=== PATIENT | female | born 1980 | race Caucasian/White ===

== ENCOUNTER 2020-06-17 19:30 | Emergency (ER) | payer OTHER, SELFPAY ==
[2020-06-17 19:41] VITALS: BP 132/79; PULSE 97; RESP 16; TEMP 37.8; O2SAT 99
--- NOTE | 2020-06-17 20:05 | ED.FEMALEGU ---
HPI - Female Genitourinary General Chief complaint: Urogenital-Female Stated complaint: uti Time Seen by Provider: 06/17/20 19:54 Source: patient Mode of arrival: ambulatory Limitations: no limitations History of Present Illness HPI Narrative: Patient is a 39 year old patient who presents with complaints of fever, chills, headache and vomiting x 1 day. Patient reports she had symptoms of urinary frequency and urgency yesterday and called pcp, had telemedicine visit and started on macrobid. Patient reports 3 doses of macrobid and presented with fever, chills, headache and vomiting. Patient reports that she was in [place] a week ago. She is also concerned with having Covid. MD elicited complaint: UTI and other Related Data Home Medications Medication Instructions Recorded Confirmed esdgotvwkl-qyacerboywgnn-tnsz tablet 06/17/20 nitrofurantoin monohyd/m-cryst 06/17/20 Allergies Allergy/AdvReac Type Severity Reaction Status Date / Time sulfamethoxazole Allergy Mild Swelling Verified 06/17/20 20:22 of Lip/Tongue/Throat Sulfa (Sulfonamide Allergy Unknown Swelling Verified 06/17/20 20:22 Antibiotics) sulfamethizole Allergy Unknown Swelling Verified 06/17/20 20:22 of Lip/Tongue/Throat trimethoprim Allergy Unknown Swelling Verified 06/17/20 20:22 of Lip/Tongue/Throat Review of Systems Review of Systems: Narrative: CONSTITUTIONAL: Reports fever and chills. EYES: Denies visual changes, redness, or discharge. ENT: Denies rhinorrhea, congestion, sore throat, or otalgia. CARDIOVASCULAR: Denies chest pain, palpitations, or edema. RESPIRATORY: Denies cough or dyspnea. GASTROINTESTINAL: Denies abdominal pain or diarrhea. Reports nausea and vomiting. GENITOURINARY: Denies dysuria or hematuria, reports frequency and urgency. SKIN: Denies rash or itching. MUSCULOSKELETAL: Denies back pain, joint pain, or myalgia. NEUROLOGIC: Denies headache, numbness, dizziness, or weakness. PSYCHIATRIC: Denies anxiety or depression. [facility] Family History Family History Father Hypertension Grandparent Family history of lung cancer Mother Family history of malignant neoplasm of kidney Social History Social History Smoking status: Never smoker Second hand tobacco smoke exposure: No Alcohol intake: never Exam Narrative: Exam Narrative: GENERAL: Well-appearing, well-nourished, and in no acute distress. HEAD: Normocephalic, atraumatic. EYES: EOMI. No redness or drainage. Conjunctiva are normal. ENT: Mucous membranes pink and moist. CHEST: No respiratory distress. Clear to auscultation. HEART: Regular rate and rhythm. No murmur appreciated. Normal peripheral pulses. GI: Soft, nontender without rebound, or guarding. No distention. Bowel sounds normal in all quadrants. MUSCULOSKELETAL: No bony tenderness. EXTREMITIES: Normal range of motion. No edema. SKIN: Warm, dry, no rash. NEURO: No focal deficits. Alert and oriented x3. Gait steady. PSYCH: Normal affect. No signs of depression or anxiety. Course Vital Signs Vital signs: Vital Signs Temperature 37.8 C H 06/17/20 19:41 Pulse Rate 97 06/17/20 19:41 Respiratory Rate 16 06/17/20 19:41 Blood Pressure 132/79 06/17/20 19:41 Pulse Oximetry 99 06/17/20 19:41 Temperature 37.8 C H 06/17/20 19:41 Pulse Rate 97 06/17/20 19:41 Respiratory Rate 16 06/17/20 19:41 Blood Pressure 132/79 06/17/20 19:41 Pulse Oximetry 99 06/17/20 19:41 MDM - Female Genitourinary MDM Narrative Medical decision making narrative: Patient will be started on Keflex at this time for UTI. Testing for Covid competed because of patients symptoms and recent travels. Patient aware of the need to quarantine until return of Covid testing. Discussed plan of care with patient and patient verbally acknowledges plan of care. Forresta
[2020-06-17 20:36] LABS: Add Urine Microscopic? YES; Appearance Urine Clear (Clear); Bacteria Urine Trace /hpf; Bilirubin Urine Negative (Negative); Blood Urine Negative (Negative); Color Urine Amber (Yellow); Glucose Urine UA Negative (Negative); Ketones Urine Negative (Negative); Leukocyte Esterase Ur Negative LEU/UL (Negative); Mucus Urine Rare /lpf; Nitrate Urine Positive (Negative); Protein Urine 1+ mg/dL (Negative); WBC Urine 0-3 /hpf
[2020-06-17] MEDS: SODIUM CHLORIDE 0.9% IV 1,000 ML 999 ML IV CONT (21:06)
[2020-06-17] MEDS: ONDANSETRON INJ 4 MG/2 ML VIAL IV PUSH (21:07)
[2020-06-17] MEDS: CEPHALEXIN 500 MG CAPSULE PO (22:36)
[2020-06-17 22:37] VITALS: BP 114/68; PULSE 75; RESP 18; TEMP 37.7; O2SAT 100
[2020-06-19 12:00] LABS: SARS-CoV-2 RNA PCR Negative
== END 2020-06-17 22:37 | disposition home or self-care (01) ==
LOC: ANHED 21:10
PROVIDERS: Emergency Provider Nurse Practitioner; PCP Internal Medicine
DX: N30.00 Acute cystitis without hematuria (principal); Z20.828 Contact with and (suspected) exposure to other viral communicable diseases
CPT/HCPCS: 81001; 81025; 87635; 96361; 96374; 99284; A9270; C9803; J2405; J7030; U0003

== ENCOUNTER 2020-09-13 08:18 | Outpatient (CLI) | payer OTHER, SELFPAY ==
--- NOTE | ~2020-09-13 | XR_ITS ---
XR UGI water soluble wo kub DATE: 09/13/2020 09:14 INDICATION: Nausea and fiery epigastric pain for 3 weeks TECHNIQUE: Single contrast examination with water-soluble contrast material COMPARISON: None FINDINGS: There is normal deglutition and esophageal peristalsis. No stricture, mucosal fold thickeni ng, ulceration or intraluminal mass lesion of the esophagus, stomach or duodenum is detected. The pro ximal and mid small bowel mucosal pattern appears normal. IMPRESSION: No significant abnormality Reviewed, dictated and finalized at [facility]. Reviewed, dictated and finalized at location [facility]. IMPRESSION: No significant abnormality
== END 2020-09-13 08:19 | disposition home or self-care (01) ==
PROVIDERS: PCP Internal Medicine; Visit Provider Nurse Practitioner
DX: R11.0 Nausea (principal)
CPT/HCPCS: 74240

== ENCOUNTER 2021-02-08 08:58 | Outpatient (CLI) | payer OTHER, SELFPAY ==
--- NOTE | ~2021-02-08 | US_ITS ---
EXAMINATION: US pelvic complete w TV DATE: 02/08/2021 09:45 INDICATION: Bilateral ovarian cyst. Comparison:No prior studies for comparison. TECHNIQUE: Multiple transabdominal and endovaginal sonographic images of the pelvis performed. FINDINGS: The uterus measures 9 x 4.3 x 4 cm. There is fluid in the endometrium, likely physiologic. The endometrial complex measures 9 mm. The right ovary measures 2.6 x 2.1 x 2.6 cm and the left ovary measures 2.2 x 1.7 x 2.0 cm. There ar e small follicles in each ovary. There is a 2 cm left ovarian cyst. Normal doppler signal in both ova kennedy. There is no free fluid in the pelvis. There are no abnormal masses seen on either side. IMPRESSION: 1. 2 cm left ovarian cyst. Reviewed, dictated and finalized at location [facility]. IMPRESSION: 1. 2 cm left ovarian cyst.
== END 2021-02-08 08:59 | disposition home or self-care (01) ==
PROVIDERS: PCP Internal Medicine; Visit Provider Student in an Organized Health Care Education/Training Program
DX: N83.202 Unspecified ovarian cyst, left side (principal)
CPT/HCPCS: 76830; 76856

== ENCOUNTER 2021-02-20 15:28 | Emergency (ER) | payer OTHER, SELFPAY ==
[2021-02-20] VITALS (10 sets, daily range): BP systolic 118–135; BP diastolic 68–79; PULSE 83–96; RESP 14–38; TEMP 36.4–36.6; O2SAT 94–99
--- NOTE | ~2021-02-20 | XR_ITS ---
EXAMINATION: XR chest 2V DATE: 02/20/2021 16:04 INDICATION: Shortness of breath. Chest pain with inhalation. TECHNIQUE: PA and lateral views of the chest were obtained. COMPARISON: Chest CT dated 05/25/2014 FINDINGS: The lungs are clear with no focal airspace opacities, pulmonary edema, pleural effusion or pneumothor ax. The cardiomediastinal silhouette is normal. Mild pectus excavatum. Mild thoracic spondylosis. IMPRESSION: 1. No acute cardiopulmonary disease. Reviewed, dictated and finalized at location [facility].
--- NOTE | ~2021-02-20 | CT_ITS ---
EXAMINATION: CTA chest PE protocol DATE: 02/20/2021 18:01 INDICATION: Chest pain and shortness of breath TECHNIQUE: Computed tomography angiography (CTA) of the chest was performed with 100 mL Omnipaque-350 intravenous contrast timed to evaluate the pulmonary arteries. Coronal maximum intensity projection 3D-reconstructions were created by the technologist. The dose-length product (DLP) was 148.88 mGy-cm. Automated exposure control and iterative reconstruction technique were employed. COMPARISON: 05/25/2014 FINDINGS: Respiratory motion artifact mildly limits the examination. The pulmonary arteries are well- opacified. No pulmonary embolism is identified. There are widespread groundglass opacities throughout the lungs, worst in the mid and upper lung zones and patchy in the lung bases. There is no pleural e ffusion or pneumothorax. The heart size is normal. There is mild right hilar lymphadenopathy. There i s a 10 mm nodule of the right thyroid lobe. IMPRESSION: 1. Widespread groundglass opacities throughout the lungs with a mid and upper lung zone predominance. Differential includes atypical pneumonia and hypersensitivity pneumonitis. 2. No pulmonary embolus identified. Reviewed, dictated and finalized at location A. IMPRESSION: 1. Widespread groundglass opacities throughout the lungs with a mid and upper l verena zone predominance. Differential includes atypical pneumonia and hypersensit ivity pneumonitis. 2. No pulmonary embolus identified.
--- NOTE | 2021-02-20 15:48 | ECG_ITS ---
Measurements Intervals [place] Rate: 97 P: 68 [place]: 136 QRS: 76 QRSD: 83 T: 7 QT: 358 QTc: 455 Interpretive Statements SINUS RHYTHM LEFT ATRIAL ENLARGEMENT MINIMAL Q WAVES- INFERIOR LEADS BORDERLINE ST-T WAVE ABNORMALITY- INFERIOR LEADS BASELINE ARTIFACT- II, III, AVR, AVL, AVF, V4 BORDERLINE ECG Electronically Signed On 02-20-2021 16:46:06 CDT by Lawrence Paz D.O.
[2021-02-20 15:56] LABS: Basophils Percent Auto 0.4 % (0.2-1.2); Eosinophils Absolute Auto 0.1 K/mm3 (0-0.3); Eosinophils Percent Auto 0.7 % (0-4.4); Hemoglobin 11.4 g/dL (12.0-15.0); Immature Granulocyte Absolute 0.03 K/mm3 (0.00-0.031); Immature Granulocyte Percent A 0.3 % (0-0.5); Mean Corpuscular HGB Conc 32.6 g/dl (32-36); Mean Corpuscular Hemoglobin 30.2 pg (26-34); Mean Corpuscular Volume 92.8 fl (80-100); Mean Platelet Volume 9.5 fl (7.4-10.4); Monocytes Absolute Auto 0.7 K/mm3 (0.1-0.6); Monocytes Percent Auto 5.9 % (2.6-8.5); Neutrophils Absolute Auto 9.4 K/mm3 (1.3-6.7); Neutrophils Percent Auto 83.7 % (45.5-73.1); Platelet Count Result 398 k/mm3 (150-375); Red Blood Count 3.77 M/mm3 (4.2-5.4); Red Cell Distribution Width 12.9 % (11.5-14.5); White Blood Count 11.2 K/mm3 (4.5-10.0)
[2021-02-20 16:08] LABS: Anion Gap 9 mmol/L (8-16); Blood Urea Nitrogen 12 mg/dL (7-17); Calcium 9.2 mg/dL (8.4-10.2); Carbon Dioxide 25 mmol/L (22-30); Chloride 106 mmol/L (98-107); Estimated CRCL calculation 121 ml/min; Estimated Glomerular Filt Rate > 60; Glucose 113 mg/dL (65-105); Potassium 3.8 mmol/L (3.4-5.0); Sodium 140 mmol/L (137-145)
--- NOTE | 2021-02-20 16:50 | ED.SOB ---
HPI - SOB/Dyspnea General Chief Complaint: Shortness of Breath/Dyspnea Stated Complaint: pain w/ inspiration Time Seen by Provider: 02/20/21 16:07 Source: patient Mode of arrival: ambulatory Limitations: no limitations History of Present Illness HPI Narrative: Patient is a 40-year-old female who presents to the emergency department with complaints of dry cough, chest pain and shortness of breath. She also reports mild nausea that has been continuous for approximately the past 2 to 3 weeks. Patient reports shortness of breath started approximately 3 days ago. Patient reports being seen and treated MoBap and diagnosed with pleurisy. She reports negative rapid Covid in ED. Patient reports having Moderna vaccine x 2 and is over 4 weeks out from last does. Per patient she has recently been diagnosed with with mild Crohn's and was seen on abdominal CT with and inflamed ileum . Patient reports recent diagnosis with UTI and over the past month has had chills and body aches. She reports being on antibiotics for UTI. She also reports recent rheumatology work up that was negative for Lupus and RA. 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 She appears uncomfortable and continues to cough with deep breathing during assessment. She has no history or asthma or other respiratory conditions. MD elicited complaint: shortness of breath, cough and chest pain Related Data Home Medications Medication Instructions Recorded Confirmed ocntzenlkm-uzkvmomgthgja-ekiq tablet 06/17/20 09/20/20 cholecalciferol (vitamin D3) 50 50 mcg PO DAILY 09/14/20 09/20/20 mcg (2,000 unit) capsule ascorbic acid (vitamin C) 250 mg 250 mg PO DAILY 09/20/20 09/20/20 tablet zinc 50 mg tablet 50 mg PO DAILY 09/20/20 09/20/20 Allergies Allergy/AdvReac Type Severity Reaction Status Date / Time sulfamethoxazole Allergy Mild Swelling Verified 09/20/20 08:03 of Lip/Tongue/Throat Sulfa (Sulfonamide Allergy Unknown Swelling Verified 09/20/20 08:03 Antibiotics) sulfamethizole Allergy Unknown Swelling Verified 09/20/20 08:03 of Lip/Tongue/Throat trimethoprim Allergy Unknown Swelling Verified 09/20/20 08:03 of Lip/Tongue/Throat prochlorperazine AdvReac Anxiety Verified 02/20/21 15:50 [From Compazine] Review of Systems Review of Systems: Narrative: CONSTITUTIONAL: Denies fever, chills, or sweats. EYES: Denies visual changes, redness, or discharge. ENT: Denies rhinorrhea, congestion, sore throat, or otalgia. CARDIOVASCULAR: Reports chest pain, denies palpitations or edema. RESPIRATORY: Reports cough and dyspnea. GASTROINTESTINAL: Denies abdominal pain, reports mild nausea GENITOURINARY: Denies dysuria or hematuria. SKIN: Denies rash or itching. MUSCULOSKELETAL: Denies back pain, joint pain, or myalgia. NEUROLOGIC: Denies headache, numbness, dizziness, or weakness. PSYCHIATRIC: Denies anxiety or depression. [facility] Surgical History Surgical History Hx of tonsillectomy Family History Family History Father Hypertension Grandparent Family history of lung cancer Mother Family history of malignant neoplasm of kidney Social History Social History (Updated 02/20/21 @ 16:58 by JAZMIN Simpson) Smoking status: Never smoker Second hand tobacco smoke exposure: No Alcohol intake: never Substance use: never Comments At the time of signature, I have reviewed and agree with nursing past medical, surgical, social, and family history unless otherwise noted. Please see nursing chart for further information. There is no relevant family history pertinent to the presenting complaint. Exam Narrative: Exam Narrative: GENERAL: Well-appearing, well-nourished, and in no acute distress. HEAD: Normocephalic, atraumatic. EYES: EOMI. No redness or drainage. Conjunctiva are normal. ENT: Mucous membranes pink and moist.
[2021-02-20 17:39] LABS: Add Urine Microscopic? YES; Appearance Urine Clear (Clear); Bilirubin Urine Negative (Negative); Blood Urine 2+ (Negative); Color Urine Yellow (Yellow); Glucose Urine UA Negative (Negative); Ketones Urine 1+ mg/dL (Negative); Leukocyte Esterase Ur Negative LEU/UL (Negative); Mucus Urine Moderate /lpf; Nitrate Urine Negative (Negative); Protein Urine 1+ mg/dL (Negative); Specific Grav Ur 1.023 (1.001-1.035); Urobilinogen Urine Negative mg/dL (<2.0); WBC Urine 0-3 /hpf
--- NOTE | 2021-02-20 19:45 | PC.NURSE ---
Pt presents to ED with complaints of sob that onset on Friday. Pt seen yesterday for same with negative ct results. Pt complains of pain with deep inhalation. Lung sounds are clear and diminished bilaterally. Breathing noted to be even and unlabored at this time. O2 saturation 95% on room air. Pt is alert and oriented x4 and in no obvious distress at this time. All questions and concerns addressed. Pt advised to press call button for assistance.
--- NOTE | 2021-02-20 21:05 | PC.NURSE ---
Spouse presented to bedside. Pt requesting prescriptions for meds; EDNP notified. Pt remains alert and oriented and vitals are stable. Updated on poc and all questions and concerns addressed.
[2021-02-21 17:07] LABS: SARS-CoV-2 RNA PCR Negative
== END 2021-02-20 21:45 | disposition home or self-care (01) ==
PROVIDERS: Emergency Medicine; Emergency Provider Nurse Practitioner; PCP Internal Medicine
DX: Z20.822 Contact with and (suspected) exposure to COVID-19 (principal); J18.9 Pneumonia, unspecified organism
CPT/HCPCS: 36415; 71046; 71275; 80048; 81001; 81025; 85025; 93005; 99284; C9803; Q9967; U0003; U0005

== ENCOUNTER 2021-10-13 10:05 | Emergency (ER) | payer OTHER, SELFPAY ==
[2021-10-13 10:18] VITALS: BP 107/76; PULSE 76; RESP 18; TEMP 36.7; O2SAT 100
--- NOTE | 2021-10-13 10:54 | ED.URI ---
HPI - URI/Sore Throat General Chief Complaint: Upper Respiratory Infection Stated Complaint: chills,bodyache,headache Source: patient and RN notes reviewed Limitations: no limitations History of Present Illness HPI Narrative: The vaccinated patient, a non-smoker/none, presents with chills and nausea. Patient states she has a history of Crohn disease on monoclonal antibodies and has had influenza and Covid vaccines. She is notes a shorter 2-day history of chills, myalgias with definite headache associated with nonbilious emesis x2-3 times yesterday only. No fever, weight loss, significant cough, sore throat; no loss of taste/smell, CP, wheezing, S OB. Azebz-pc-lzxj testing for influenza is definitely positive. Related Data Home Medications Medication Instructions Recorded Confirmed cholecalciferol (vitamin D3) 50 50 mcg PO DAILY 09/14/20 10/13/21 mcg (2,000 unit) capsule nortriptyline 10 mg capsule 10 mg PO BID 04/23/21 10/13/21 cholecalciferol (vitamin D3) 1,250 1,250 mcg PO WEEKLY 07/27/21 10/13/21 mcg (50,000 unit) capsule ferrous sulfate 325 mg (65 mg 325 mg PO DAILY 07/27/21 10/13/21 iron) tablet vedolizumab [Entyvio] IV 10/13/21 10/13/21 Allergies Allergy/AdvReac Type Severity Reaction Status Date / Time nitrofurantoin Allergy Severe Lung Verified 10/13/21 10:26 [From Macrobid] injury sulfamethoxazole Allergy Mild Swelling Verified 10/13/21 10:26 of Lip/Tongue/Throat Sulfa (Sulfonamide Allergy Unknown Swelling Verified 10/13/21 10:26 Antibiotics) sulfamethizole Allergy Unknown Swelling Verified 10/13/21 10:26 of Lip/Tongue/Throat trimethoprim Allergy Unknown Swelling Verified 10/13/21 10:26 of Lip/Tongue/Throat prochlorperazine AdvReac Anxiety Verified 10/13/21 10:26 [From Compazine] Review of Systems Review of Systems: General/Constitutional: No weight loss, POSSIBLE fever Eyes: N0: Redness,discharge Ears/Nose/Throat: No: Epistaxis,ear discharge Respiratory: Denies: Hemoptysis Gastrointestinal: No Vomiting, Bleeding-rectal Skin: No Lumps, eruption Neurologic: No Focal Weakness,Sz Hematologic: Denies: Petechiae/Purpura Psychiatric: No: Suicida ideationl All Other Systems: Reviewed and Negative PMFSH Surgical History Surgical History Hx of tonsillectomy Family History Family History Father Hypertension Grandparent Family history of lung cancer Mother Family history of malignant neoplasm of kidney Social History Social History (Updated 07/27/21 @ 09:11 by Ana Cristina Kim CNA) Smoking status: Never smoker Second hand tobacco smoke exposure: No Alcohol intake: never Substance use: never Comments At time of signature, agree with nursing past medical, surgical, social and family history. There is no relevant family history pertinent to the presenting complaint Exam Narrative: General Appearance: Well appearing, Well nourished EYE: PERRLA, Conjunctiva clear Ears: Auditory canal normal, TM normal Nose: no rhinorrhea, Mucousal erythema Mouth/Throat: MM moist, Uvula midline, Pharyngeal erythema , Supple, No adenopathy Respiratory: No respiratory distress, Breath sounds equal, Clear to auscultation Cardiovascular: RRR, No JVD Musculoskeletal: Non tender, Normal strength Skin: Warm, Dry Neurological: A&O x3, CN II-XII intact Psychiatric: Normal mood, Normal affect Course Vital Signs Vital signs: Vital Signs Temperature 98.1 F 10/13/21 10:18 Pulse Rate 76 10/13/21 10:18 Respiratory Rate 18 10/13/21 10:18 Blood Pressure 107/76 10/13/21 10:18 Pulse Oximetry 100 10/13/21 10:18 Temperature 98.1 F 10/13/21 10:18 Pulse Rate 76 10/13/21 10:18 Respiratory Rate 18 10/13/21 10:18 Blood Pressure 107/76 10/13/21 10:18 Pulse Oximetry 100 10/13/21 10:18 MDM - URI/Sore Thr
== END 2021-10-13 11:01 | disposition home or self-care (01) ==
PROVIDERS: Emergency Provider Emergency Medicine; PCP Internal Medicine
DX: J10.1 Influenza due to other identified influenza virus with other respiratory manifestations (principal); K50.90 Crohn's disease, unspecified, without complications; M06.9 Rheumatoid arthritis, unspecified
CPT/HCPCS: 87804; 99213; G0463

== ENCOUNTER 2021-11-09 09:56 | Emergency (ER) | payer OTHER, SELFPAY ==
--- NOTE | 2021-11-09 10:02 | ED.EYEPROB ---
HPI - Eye Problem General Chief complaint: Eye Problems Stated complaint: bilateral eye irritation Time Seen by Provider: 11/09/21 10:02 Source: patient, family and RN notes reviewed Mode of arrival: ambulatory Limitations: no limitations History of Present Illness HPI Narrative: Kristin is a 41-year-old female patient who ambulated into the [facility]. Patient's complaining of right eye irritation for 1 day. Patient also states she has a small white spot to the left. Patient denies any drainage. Patient states she is had irritation for several days but site before the pain. Pain started yesterday afternoon. Patient has used saline drops. Patient use cold compresses which she states increased irritation. Patient is a contact lens wear. She remove those yesterday and has been wearing her glasses. Patient states all of her contacts did come out intact. Patient does take nortriptyline and has noticed dry eyes since starting. Related Data Home Medications Medication Instructions Recorded Confirmed nortriptyline 10 mg capsule 10 mg PO BID 04/23/21 11/09/21 cholecalciferol (vitamin D3) 1,250 1,250 mcg PO WEEKLY 07/27/21 11/09/21 mcg (50,000 unit) capsule ferrous sulfate 325 mg (65 mg 325 mg PO DAILY 07/27/21 11/09/21 iron) tablet vedolizumab [Entyvio] IV DIRECTED 10/13/21 10/13/21 Allergies Allergy/AdvReac Type Severity Reaction Status Date / Time nitrofurantoin Allergy Severe Lung Verified 11/09/21 10:14 [From Macrobid] injury sulfamethoxazole Allergy Mild Swelling Verified 11/09/21 10:14 of Lip/Tongue/Throat Sulfa (Sulfonamide Allergy Unknown Swelling Verified 11/09/21 10:14 Antibiotics) sulfamethizole Allergy Unknown Swelling Verified 11/09/21 10:14 of Lip/Tongue/Throat trimethoprim Allergy Unknown Swelling Verified 11/09/21 10:14 of Lip/Tongue/Throat prochlorperazine AdvReac Anxiety Verified 11/09/21 10:14 [From Compazine] Review of Systems Review of Systems: CONSTITUTIONAL: Denies body aches, fever, chills, or sweats. EYES: Denies visual changes,+ redness, denies discharge. ENT: Denies rhinorrhea, congestion, sore throat, or otalgia. CARDIOVASCULAR: Denies chest pain, palpitations, or edema. RESPIRATORY: Denies cough or dyspnea. GASTROINTESTINAL: Denies abdominal pain, nausea, vomiting, or diarrhea. GENITOURINARY: Denies dysuria or hematuria. SKIN: Denies rash, itching, or wounds. MUSCULOSKELETAL: Denies back pain, joint pain, or myalgia. NEUROLOGIC: Denies headache, numbness, tingling, or weakness. PSYCH: Denies depression or anxiety. [facility] Surgical History Surgical History Hx of tonsillectomy Family History Family History Father Hypertension Grandparent Family history of lung cancer Mother Family history of malignant neoplasm of kidney Social History Social History Smoking status: Never smoker Second hand tobacco smoke exposure: No Alcohol intake: never Substance use: never Comments At time of signature, I have reviewed and agree with nursing past medical, surgical, social and family history unless otherwise noted. Please see nursing chart for further information. There is no relevant family history pertinent to the presenting complaint Exam Narrative: GENERAL: Well-appearing, well-nourished, and in no acute distress. HEAD: Normocephalic, atraumatic. EYES: EOMI. Mild redness right eye without drainage. Conjunctivae normal. ENT: Mucous membranes pink and moist. Nares clear. No rhinorrhea. NECK: Normal AROM. Supple. CHEST: No respiratory distress. MUSCULOSKELETAL: No bony tenderness. EXTREMITIES: Normal range of motion. No edema. SKIN: Warm, dry, no rash. Capillary refill normal. Normal skin turgor. NEURO: No focal deficits. Alert and oriented x3. Gait
[2021-11-09 10:07] VITALS: BP 112/75; PULSE 83; RESP 18; TEMP 37; O2SAT 100
== END 2021-11-09 10:32 | disposition home or self-care (01) ==
PROVIDERS: Emergency Provider Nurse Practitioner Family; PCP Internal Medicine
DX: S05.01XA Injury of conjunctiva and corneal abrasion without foreign body, right eye, initial encounter (principal); X58.XXXA Exposure to other specified factors, initial encounter; K50.90 Crohn's disease, unspecified, without complications
CPT/HCPCS: 99213; A9270; G0463

== ENCOUNTER 2022-02-01 10:58 | Emergency (ER) | payer OTHER, SELFPAY ==
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
[2022-02-01 11:39] VITALS: BP 115/71; PULSE 84; RESP 18; TEMP 36.8; O2SAT 100
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
== END 2022-02-01 12:42 | disposition home or self-care (01) ==
PROVIDERS: Emergency Provider Nurse Practitioner; PCP Internal Medicine
DX: S46.811A Strain of other muscles, fascia and tendons at shoulder and upper arm level, right arm, initial encounter (principal); V49.40XA Driver injured in collision with unspecified motor vehicles in traffic accident, initial encounter; K50.90 Crohn's disease, unspecified, without complications
CPT/HCPCS: 73030; 99213; G0463

== ENCOUNTER 2022-07-22 09:42 | Emergency (ER) | payer OTHER, SELFPAY ==
[2022-07-22 09:52] VITALS: BP 119/79; PULSE 98; RESP 16; TEMP 37.4; O2SAT 100
--- NOTE | 2022-07-22 10:06 | ED.FEMALEGU ---
HPI - Female Genitourinary General Chief complaint: Urogenital-Female Stated complaint: uti symptoms Time Seen by Provider: 07/22/22 09:43 Source: patient Mode of arrival: ambulatory Limitations: no limitations History of Present Illness HPI Narrative: 42-year-old female presents to urgent care with complaints of urinary frequency, urgency, pain and burning since yesterday. Patient reports that she does have a history of urinary tract infections. Patient reports that she is unable to tolerate ciprofloxacin, sulfa drugs and Macrobid. Patient denies abdominal pains, flank pain, fever, bodies, chills, nausea, vomiting, diarrhea, vaginal discharge or concern for STDs. MD elicited complaint: dysuria and UTI Onset (ago): day(s) (1) Vaginal discharge: none Vaginal bleeding: none Urinary symptoms: Dysuria, Urgency and Frequency Exacerbating factors: none Relieving factors: none Treatment prior to arrival: none Patient : No Related Data Home Medications Medication Instructions Recorded Confirmed nortriptyline 10 mg capsule 10 mg PO BID 04/23/21 02/01/22 vedolizumab 300 mg intravenous 300 mg IV DIRECTED 10/13/21 02/01/22 solution (Entyvio) Allergies Allergy/AdvReac Type Severity Reaction Status Date / Time nitrofurantoin Allergy Severe Lung Verified 07/22/22 09:56 [From Macrobid] injury sulfamethoxazole Allergy Mild Swelling Verified 07/22/22 09:56 of Lip/Tongue/Throat Sulfa (Sulfonamide Allergy Unknown Swelling Verified 07/22/22 09:56 Antibiotics) sulfamethizole Allergy Unknown Swelling Verified 07/22/22 09:56 of Lip/Tongue/Throat trimethoprim Allergy Unknown Swelling Verified 07/22/22 09:56 of Lip/Tongue/Throat prochlorperazine AdvReac Anxiety Verified 07/22/22 09:56 [From Compazine] Review of Systems Constitutional: Constitutional: Denies chills and Denies fatigue ENT: Denies vertigo and Denies dizziness Respiratory: Respiratory: Denies chest congestion and Denies cough Gastrointestinal: Gastrointestinal: Denies abdominal pain, Denies nausea and Denies vomiting Genitourinary: Genitourinary: Reports nocturia and Reports dysuria Musculoskeletal: Musculoskeletal: Denies back pain Integumentary/Breasts: Skin/Breast: Denies rash Neurologic: Denies vertigo and Denies dizziness [facility] Past Medical History Medical History Anemia Chronic migraine without aura without status migrainosus, not intractable Crohn disease Surgical History Surgical History Hx of tonsillectomy Family History Family History Father Hypertension Grandparent Family history of lung cancer Mother Family history of malignant neoplasm of kidney Social History Social History Smoking status: Never smoker Second hand tobacco smoke exposure: No Alcohol intake: never Substance use: never Comments At time of signature, I agree with nursing past medical, surgical, social and family history. There is no relevant family history pertinent to the presenting complaint. Exam Const: General: healthy appearing Nutritional Appearance: well nourished Orientation/consciousness: patient oriented x3 Limitations: no limitations Neck: Neck: normal visual inspection Resp: Effort & Inspection: normal respiratory effort and not labored Auscultation: clear to auscultation bilaterally Cardio: Rate: regular rate Rhythm: regular rhythm Heart sounds: no murmurs GI: Inspection: non-distended GI Palp: Yes Soft to palpation, No Tenderness to palpation present (GI), No Guarding due to palpation present (GI) and No Rigid due to palpation Auscultation: normal bowel sounds : General: Yes bladder normal to palpation and Yes no CVA tenderness Back/Spine/Pelvis: Back:
== END 2022-07-22 10:15 | disposition home or self-care (01) ==
PROVIDERS: Emergency Provider Nurse Practitioner Family; PCP Family Medicine
DX: N39.0 Urinary tract infection, site not specified (principal); K50.90 Crohn's disease, unspecified, without complications
CPT/HCPCS: 81003; 87077; 87086; 87088; 87186; 99213; G0463

== ENCOUNTER 2022-09-06 16:15 | Emergency (ER) | payer OTHER, SELFPAY ==
[2022-09-06 16:40] VITALS: BP 132/82; PULSE 81; RESP 99; TEMP 36.7; O2SAT 100
[2022-09-06 17:13] LABS: Basophils Percent Auto 0.4 % (0.2-1.2); Eosinophils Absolute Auto 0.1 K/mm3 (0-0.3); Eosinophils Percent Auto 0.9 % (0-4.4); Hematocrit 32.4 % (37.0-47.0); Hemoglobin 10.9 g/dL (12.0-15.0); Immature Granulocyte Absolute 0.02 K/mm3 (0.00-0.031); Immature Granulocyte Percent A 0.2 % (0-0.5); Lymphocytes Absolute Auto 1.09 K/mm3 (0.9-3.2); Lymphocytes Percent Auto 10.9 % (18.3-44.2); Mean Corpuscular HGB Conc 33.6 g/dl (32-36); Mean Corpuscular Hemoglobin 31.7 pg (26-34); Mean Corpuscular Volume 94.2 fl (80-100); Mean Platelet Volume 9.6 fl (7.4-10.4); Monocytes Absolute Auto 0.5 K/mm3 (0.1-0.6); Monocytes Percent Auto 5.2 % (2.6-8.5); Neutrophils Absolute Auto 8.2 K/mm3 (1.3-6.7); Neutrophils Percent Auto 82.4 % (45.5-73.1); Platelet Count Result 304 k/mm3 (150-375); Red Blood Count 3.44 M/mm3 (4.2-5.4); Red Cell Distribution Width 12.6 % (11.5-14.5)
[2022-09-06 17:23] LABS: Alanine Aminotransferase 18 U/L (6-35); Albumin Level 4.4 g/dL (3.5-5.1); Alkaline Phosphatase 56 U/L (38-126); Anion Gap 8 mmol/L (8-16); Aspartate Amino Transferase 28 U/L (14-36); Bilirubin,Total 1.2 mg/dL (0.2-1.3); Blood Urea Nitrogen 18 mg/dL (7-17); Carbon Dioxide 27 mmol/L (22-30); Chloride 105 mmol/L (98-107); Estimated CRCL calculation 101 ml/min; Estimated Glomerular Filt Rate > 60; Glucose 106 mg/dL (65-110); Lipase 128 U/L (23-300); Potassium 4.2 mmol/L (3.4-5.0); Sodium 140 mmol/L (137-145)
== END 2022-09-06 18:36 | disposition left against medical advice (07) ==
LOC: ANHED 18:40
PROVIDERS: Emergency Provider Emergency Medicine; PCP Family Medicine
DX: R10.30 Lower abdominal pain, unspecified (principal); K50.90 Crohn's disease, unspecified, without complications
CPT/HCPCS: 36415; 80053; 83690; 85025; 99199

== ENCOUNTER 2023-04-17 08:18 | Emergency (ER) | payer OTHER, SELFPAY ==
[2023-04-17 08:36] VITALS: BP 98/70; PULSE 86; RESP 16; TEMP 36.6; O2SAT 100
--- NOTE | 2023-04-17 08:42 | ED.URI ---
HPI - URI/Sore Throat General Chief Complaint: Upper Respiratory Infection Stated Complaint: sore throat,headache,bodyache Time Seen by Provider: 04/17/23 08:29 Source: patient Mode of arrival: ambulatory Limitations: no limitations History of Present Illness HPI Narrative: Patient presents today complaining of 4 day history of sore throat, body aches, headache, postnasal drip. Denies cough, congestion, fever. Denies known sick contacts. Currently rates her pain 4/10 and has taken ibuprofen today without relief. Related Data Home Medications Medication Instructions Recorded Confirmed nortriptyline 10 mg capsule 10 mg PO BID 04/23/21 04/17/23 vedolizumab 300 mg intravenous 300 mg IV DIRECTED 10/13/21 04/17/23 solution (Entyvio) [id number]-tndufkywavfxb-nrezolsh tablet 04/17/23 04/17/23 50 mg-325 mg-40 mg tablet Allergies Allergy/AdvReac Type Severity Reaction Status Date / Time nitrofurantoin Allergy Severe Lung Verified 04/17/23 08:27 [From Macrobid] injury sulfamethoxazole Allergy Mild Swelling Verified 04/17/23 08:27 of Lip/Tongue/Throat Sulfa (Sulfonamide Allergy Unknown Swelling Verified 04/17/23 08:27 Antibiotics) sulfamethizole Allergy Unknown Swelling Verified 04/17/23 08:27 of Lip/Tongue/Throat trimethoprim Allergy Unknown Swelling Verified 04/17/23 08:27 of Lip/Tongue/Throat ciprofloxacin [From Cipro] AdvReac Anxiety Verified 04/17/23 08:28 prochlorperazine AdvReac Anxiety Verified 04/17/23 08:27 [From Compazine] Review of Systems Review of Systems: CONSTITUTIONAL: Denies fever, chills, or sweats.+ body aches EYES: Denies visual changes, redness, or discharge. ENT: Denies rhinorrhea, congestion, or otalgia.+ sore throat, postnasal drip CARDIOVASCULAR: Denies chest pain, palpitations, or edema. RESPIRATORY: Denies cough or dyspnea. GASTROINTESTINAL: Denies abdominal pain, nausea, vomiting, or diarrhea. GENITOURINARY: Denies dysuria or hematuria. SKIN: Denies rash, itching, or wounds. MUSCULOSKELETAL: Denies back pain, joint pain, or myalgia. NEUROLOGIC: Denies numbness, tingling, or weakness.+ headache PSYCH: Denies depression or anxiety. [facility] Past Medical History Medical History Anemia Chronic migraine without aura without status migrainosus, not intractable Crohn disease Surgical History Surgical History Hx of tonsillectomy Family History Family History Father Hypertension Grandparent Family history of lung cancer Mother Family history of malignant neoplasm of kidney Social History Social History Smoking status: Never smoker Second hand tobacco smoke exposure: No Alcohol intake: never Substance use: never Comments At time of signature, I have reviewed and agree with nursing past medical, surgical, social and family history unless otherwise noted. Please see nursing chart for further information. There is no relevant family history pertinent to the presenting complaint Exam Narrative: GENERAL: Well-appearing, well-nourished, and in no acute distress. HEAD: Normocephalic, atraumatic. EYES: EOMI. No redness or drainage. Conjunctivae normal. ENT: Mucous membranes pink and moist. Nares clear. No rhinorrhea. TMs normal bilaterally. Throat mildly erythematous posteriorly without edema or exudate. Uvula midline. NECK: Normal AROM. Supple. No lymphadenopathy. CHEST: No respiratory distress. Clear to auscultation. HEART: Regular rate and rhythm. No murmur appreciated. EXTREMITIES: Normal range of motion. No edema. SKIN: Warm, dry, no rash. Capillary refill normal. Normal skin turgor. NEURO: No focal deficits. Alert and oriented x3. Gait steady. PSYCH: Normal affect. No
== END 2023-04-17 08:49 | disposition home or self-care (01) ==
PROVIDERS: Emergency Provider Nurse Practitioner; PCP Family Medicine
DX: J06.9 Acute upper respiratory infection, unspecified (principal)
CPT/HCPCS: 87081; 87880; 99213; G0463

== ENCOUNTER 2023-05-03 15:54 | Emergency (ER) | payer OTHER, SELFPAY ==
[2023-05-03 16:19] VITALS: BP 112/74; PULSE 81; RESP 16; TEMP 36.6; O2SAT 100
--- NOTE | 2023-05-03 16:49 | ED.ANIMALBIT ---
HPI - Animal Bite General Chief Complaint: Animal Bite Stated Complaint: CAT BITE L LEG Time Seen by Provider: 05/03/23 16:45 Source: patient, RN notes reviewed and old records reviewed Mode of arrival: ambulatory Limitations: no limitations History of Present Illness HPI narrative: 42 year old female who presents to express care with complaints of being scratched and bitten by their barn cat today after cat was scared by their dog. Patient reports that cat scratched the inner aspect of her left lower leg and bit her left lower outer leg with 3 punctures noted, no active bleeding noted. Patient reports that she doesn't think her tetanus is up to date and she is concerned for infection of wounds. MD complaint: animal bite and other (cat scratch) Onset (ago): hour(s) (1500 today) Animal: cat Description of animal: appeared well (their barn cat) Location: other (left leg) Treatments prior to arrival: other (washed with soap and water) Related Data Home Medications Medication Instructions Recorded Confirmed nortriptyline 10 mg capsule 10 mg PO BID 04/23/21 05/03/23 vedolizumab 300 mg intravenous 300 mg IV DIRECTED 10/13/21 05/03/23 solution (Entyvio) [id number]-avovcippiitdd-nzquwfno 1 tablet PO Q4H PRN Headache 04/17/23 05/03/23 50 mg-325 mg-40 mg tablet Allergies Allergy/AdvReac Type Severity Reaction Status Date / Time nitrofurantoin Allergy Severe Lung Verified 05/03/23 16:32 [From Macrobid] injury sulfamethoxazole Allergy Mild Swelling Verified 05/03/23 16:32 of Lip/Tongue/Throat Sulfa (Sulfonamide Allergy Unknown Swelling Verified 05/03/23 16:32 Antibiotics) sulfamethizole Allergy Unknown Swelling Verified 05/03/23 16:32 of Lip/Tongue/Throat trimethoprim Allergy Unknown Swelling Verified 05/03/23 16:32 of Lip/Tongue/Throat ciprofloxacin [From Cipro] AdvReac Anxiety Verified 05/03/23 16:32 prochlorperazine AdvReac Anxiety Verified 05/03/23 16:32 [From Compazine] Review of Systems Review of Systems: CONSTITUTIONAL: Denies fever, chills, or sweats. CARDIOVASCULAR: Denies chest pain, palpitations, or edema. RESPIRATORY: Denies cough or dyspnea. SKIN: Reports scratches to the inner aspect of her left lower leg and puncture ruiz from bite on lateral aspect of left lower leg. MUSCULOSKELETAL: Denies musculoskeletal pain NEUROLOGIC: Denies numbness, or weakness. All systems reviewed & are unremarkable except as noted in HPI and below PMFSH Past Medical History Medical History Anemia Chronic migraine without aura without status migrainosus, not intractable Crohn disease Surgical History Surgical History Hx of tonsillectomy Family History Family History Father Hypertension Grandparent Family history of lung cancer Mother Family history of malignant neoplasm of kidney Social History Social History Smoking status: Never smoker Second hand tobacco smoke exposure: No Alcohol intake: never Substance use: never Comments At time of signature, agree with nursing past medical, surgical, social and family history. There is no relevant family history pertinent to the presenting complaint Exam Narrative: GENERAL: Well-appearing, well-nourished, and in no acute distress. HEAD: Normocephalic, atraumatic. NECK: Supple. no lymphadenopathy CHEST: Clear to auscultation. No respiratory distress.SAO2 100% on room air HEART: Regular rate and rhythm. No murmur heard. Normal peripheral pulses. EXTREMITIES: Normal range of motion. No edema. SKIN: Warm, dry, no rash. Reports puncture [id number] right lower lateral leg near knee and scratch ruiz left inner lower leg near knee also,no active bleeding noted NEURO: No focal deficits. Alert and
[2023-05-03] MEDS: TETANUS,DIPHTHERIA,AC PERTUSSIS ADULT (0.5 ML) BOOSTRIX IM (16:59)
== END 2023-05-03 17:13 | disposition home or self-care (01) ==
PROVIDERS: Emergency Provider Registered Nurse; PCP Family Medicine
DX: S81.852A Open bite, left lower leg, initial encounter (principal); S80.812A Abrasion, left lower leg, initial encounter; W55.01XA Bitten by cat, initial encounter; W55.03XA Scratched by cat, initial encounter; Z23 Encounter for immunization
CPT/HCPCS: 90471; 90715; 99213; G0463

== ENCOUNTER 2023-10-06 12:54 | Emergency (ER) | payer OTHER, SELFPAY ==
--- NOTE | ~2023-10-06 | CT_ITS ---
EXAMINATION: CT abdomen pelvis w con DATE: 10/06/2023 14:08 INDICATION: Abdominal pain. Nausea. TECHNIQUE: Computed tomography (CT) of the abdomen and pelvis was performed with 100 mL Omnipaque 350 intravenous contrast. Automated exposure control and iterative reconstruction technique were employe d. The dose-length product was 292.66 mGy-cm. COMPARISON: CT abdomen and pelvis 09/04/2009 FINDINGS: The visualized portions of the lung bases demonstrate minimal atelectasis on the left. No p leural effusion. The liver, gallbladder, spleen, pancreas, adrenal glands, are normal. There are cyst s in the kidneys measuring up to 15 mm on the right. There are no dilated loops of bowel. The appendi x is normal. There are no pathologically enlarged lymph nodes. There is physiologic fluid in the pelv is. IMPRESSION: 1. No etiology for the patient's symptoms. Reviewed, dictated and finalized at location E. [employer]
[2023-10-06 13:02] VITALS: BP 125/79; PULSE 71; RESP 16; TEMP 37.2; O2SAT 100
[2023-10-06 13:33] LABS: Basophils Percent Auto 0.7 % (0.2-1.2); Eosinophils Absolute Auto 0.1 K/mm3 (0-0.3); Eosinophils Percent Auto 1.7 % (0-4.4); Hematocrit 39.2 % (37.0-47.0); Hemoglobin 12.7 g/dL (12.0-15.0); Immature Granulocyte Absolute 0.01 K/mm3 (0.00-0.031); Immature Granulocyte Percent A 0.2 % (0-0.5); Lymphocytes Absolute Auto 1.89 K/mm3 (0.9-3.2); Lymphocytes Percent Auto 32.4 % (18.3-44.2); Mean Corpuscular HGB Conc 32.4 g/dl (32-36); Mean Corpuscular Hemoglobin 31.1 pg (26-34); Mean Corpuscular Volume 95.8 fl (80-100); Mean Platelet Volume 9.9 fl (7.4-10.4); Monocytes Absolute Auto 0.5 K/mm3 (0.1-0.6); Monocytes Percent Auto 8.2 % (2.6-8.5); Neutrophils Absolute Auto 3.3 K/mm3 (1.3-6.7); Neutrophils Percent Auto 56.8 % (45.5-73.1); Platelet Count Result 331 k/mm3 (150-375); Red Blood Count 4.09 M/mm3 (4.2-5.4); Red Cell Distribution Width 12.6 % (11.5-14.5); White Blood Count 5.8 K/mm3 (4.5-10.0)
[2023-10-06 13:40] LABS: Appearance Urine Clear (Clear); Bacteria Urine None Seen /hpf; Bilirubin Urine Negative (Negative); Blood Urine 1+ (Negative); Color Urine Yellow (Yellow); Glucose Urine UA Negative (Negative); Ketones Urine Negative (Negative); Leukocyte Esterase Ur Negative LEU/UL (Negative); Nitrate Urine Negative (Negative); Non Pathogenic Casts 0-2; Protein Urine Negative (Negative); Specific Grav Ur 1.009 (1.001-1.035); Squamous Epithelial Cell Urine None seen /hpf (Few); Urobilinogen Urine 0.2 mg/dL (<2.0); WBC Urine 0-5 /hpf
[2023-10-06 13:41] LABS: Add Urine Microscopic? YES
[2023-10-06 13:46] LABS: Alanine Aminotransferase 16 U/L (6-35); Albumin Level 4.9 g/dL (3.5-5.1); Alkaline Phosphatase 56 U/L (38-126); Anion Gap 11 mmol/L (8-16); Aspartate Amino Transferase 29 U/L (14-36); Bilirubin,Total 2.2 mg/dL (0.2-1.3); Blood Urea Nitrogen 14 mg/dL (7-17); Calcium 9.6 mg/dL (8.4-10.2); Carbon Dioxide 27 mmol/L (22-30); Chloride 100 mmol/L (98-107); Estimated CRCL calculation 118 ml/min; Estimated Glomerular Filt Rate > 60; Glucose 90 mg/dL (65-110); Lipase 88 U/L (23-300); Potassium 4.1 mmol/L (3.4-5.0); Sodium 138 mmol/L (137-145)
--- NOTE | 2023-10-06 13:51 | ED.ABDPAIN ---
HPI - Abdominal Pain General Chief Complaint: Abdominal Pain Stated Complaint: abd pain Time Seen by Provider: 10/06/23 13:19 Source: patient Limitations: no limitations History of Present Illness HPI narrative: This is a 43-year-old female presents with abdominal pain and nausea that began at approximately 7:00 a.m. this morning. She has history of Crohn's and is on Entyvio infusions every 8 weeks. Her last infusion was 3 or 4 weeks ago. Far she knew she is otherwise in remission. The pain is around her umbilicus. She denies any vomiting or diarrhea. Her last bowel movement was this morning she had abdominal pain with it. She states that it was getting worse throughout the day which is why she presented to the emergency department now. Her last colonoscopy was in October 2022. No sick contacts. Related Data Home Medications Medication Instructions Recorded Confirmed nortriptyline 10 mg capsule 10 mg PO BID 04/23/21 05/03/23 vedolizumab 300 mg intravenous 300 mg IV DIRECTED 10/13/21 05/03/23 solution (Entyvio) [id number]-bpjpiqgfaazae-wisqsqhr 1 tablet PO Q4H PRN Headache 04/17/23 05/03/23 50 mg-325 mg-40 mg tablet Allergies Allergy/AdvReac Type Severity Reaction Status Date / Time nitrofurantoin Allergy Severe Lung Verified 10/06/23 13:21 [From Macrobid] injury sulfamethoxazole Allergy Mild Swelling Verified 10/06/23 13:21 of Lip/Tongue/Throat Sulfa (Sulfonamide Allergy Unknown Swelling Verified 10/06/23 13:21 Antibiotics) sulfamethizole Allergy Unknown Swelling Verified 10/06/23 13:21 of Lip/Tongue/Throat trimethoprim Allergy Unknown Swelling Verified 10/06/23 13:21 of Lip/Tongue/Throat ciprofloxacin [From Cipro] AdvReac Anxiety Verified 10/06/23 13:21 prochlorperazine AdvReac Anxiety Verified 10/06/23 13:21 [From Compazine] [facility] Past Medical History Medical History (Updated 10/06/23 @ 15:47 by Oly Naylor MD) Anemia Chronic migraine without aura without status migrainosus, not intractable Crohn disease Surgical History Surgical History (Updated 10/06/23 @ 22:59 by Oly Naylor MD) History of colonoscopy Oct 2022 Hx of tonsillectomy Family History Family History Father Hypertension Grandparent Family history of lung cancer Mother Family history of malignant neoplasm of kidney Social History Social History (Updated 10/06/23 @ 22:59 by Oly Naylor MD) Smoking status: Never smoker Second hand tobacco smoke exposure: No Alcohol intake: never Substance use: never Living arrangements: with family Additional living arrangements comments: and 3 children Exam Narrative: GENERAL: Well-appearing, well-nourished, and in no acute distress. HEAD: Normocephalic, atraumatic. ENT: Nares clear, no rhinorrhea or epistaxis. Mucous membranes moist. NECK: Supple. CHEST: Clear to auscultation. No respiratory distress. HEART: Regular rate and rhythm. ABDOMEN: Soft, nontender, nondistended, normal active bowel sounds. EXTREMITIES: Normal range of motion. No edema. SKIN: Warm, dry, no rash. NEURO: No focal deficits. Alert and oriented x3. PSYCH: Normal mood and affect. Course Vital Signs Vital signs: Vital Signs Temperature 98.9 F 10/06/23 13:02 Pulse Rate 71 10/06/23 13:02 Respiratory Rate 16 10/06/23 13:02 Blood Pressure 125/79 10/06/23 13:02 Pulse Oximetry 100 10/06/23 13:02 Oxygen Delivery Room Air 10/06/23 13:02 Temperature 98.9 F 10/06/23 13:02 Pulse Rate 73 10/06/23 15:58 Respiratory Rate 18 10/06/23 15:58 Blood Pressure 122/77 10/06/23 15:58 Pulse Oximetry 100 10/06/23 15:58 Oxygen Delivery Room Air 10/06/23 13:02 MDM - Abdominal Pain MDM Narrative Medical decision making narrative: This patient presents with abdominal pain of unclear etiology. in the emergency de
[2023-10-06 14:11] LABS: Influenza A QL RT-PCR Negative (Negative); Influenza B QL RT-PCR Negative (Negative); SARS-CoV-2 RNA PCR Negative (Negative)
[2023-10-06 14:29] LABS: CRP < 0.5 mg/dL (<1.0)
[2023-10-06 15:00] LABS: Erythrocyte Sedimentation Rate 24 mm/hr (0-20)
[2023-10-06] MEDS: ACETAMINOPHEN 500 MG TABLET 1000 MG PO (15:52)
[2023-10-06] MEDS: KETOROLAC 15 MG/ML VIAL (*BKC) IV PUSH (15:52)
[2023-10-06 15:58] VITALS: BP 122/77; PULSE 73; RESP 18; O2SAT 100
== END 2023-10-06 15:59 | disposition home or self-care (01) ==
PROVIDERS: Emergency Provider Student in an Organized Health Care Education/Training Program; PCP Family Medicine
DX: R10.9 Unspecified abdominal pain (principal); K50.90 Crohn's disease, unspecified, without complications
CPT/HCPCS: 36415; 74177; 80053; 81001; 81025; 83690; 85025; 85652; 86140; 87636; 96374; 99284; A9270; J1885; Q9967

== ENCOUNTER 2024-09-24 16:43 | Emergency (ER) | payer OTHER, SELFPAY ==
--- NOTE | ~2024-09-24 | CT_ITS ---
EXAMINATION: CT abdomen pelvis w con DATE: 09/24/2024 20:25 INDICATION: Right lower quadrant abdominal pain. TECHNIQUE: Computed tomography (CT) of the abdomen and pelvis was performed with 100 mL Omnipaque 350 intravenous contrast. Automated exposure control and iterative reconstruction technique were employe d. The dose-length product was 279.70 mGy-cm. COMPARISON: CT abdomen and pelvis 10/06/2023 FINDINGS: The visualized portions of lung bases demonstrate minimal atelectasis on the left. No pleur al effusion. There is mild pectus excavatum. The liver, gallbladder, spleen, pancreas, and adrenal gl ands are normal. There are cysts in the kidneys measuring up to 17 mm on the right. There are no dila shaye loops of bowel. The appendix is not visualized. There are no pathologically enlarged lymph nodes. There is physiologic fluid in the pelvis. There is mild lumbar spondylosis. IMPRESSION: 1. No etiology for the patient's symptoms. Reviewed, dictated and finalized at location A. [employer]
[2024-09-24 16:46] VITALS: BP 163/87; PULSE 97; RESP 16; TEMP 36.4; O2SAT 100
--- NOTE | 2024-09-24 19:16 | ED.ABDPAIN ---
HPI - Abdominal Pain General Chief Complaint: Abdominal Pain Stated Complaint: abd pain and vomiting Time Seen by Provider: 09/24/24 19:00 Source: patient Mode of arrival: ambulatory Limitations: no limitations History of Present Illness HPI narrative: This is a 44-year-old female, with history Crohn's, presents to the emergency department complaining severe cramping abdominal pain for the past 3 hours. Patient denies any known aggravating or initiating factors. This is associated with nonbloody vomiting. she states this has slightly improved after a bowel movement today. She has no other complaints at this time. Related Data Home Medications Medication Instructions Recorded Confirmed nortriptyline 10 mg capsule 10 mg PO BID 04/23/21 05/03/23 vedolizumab 300 mg intravenous 300 mg IV DIRECTED 10/13/21 05/03/23 solution (Entyvio) tsjgfzekiv-jqesyydfaniwq-kutsbjet 1 tablet PO Q4H PRN Headache 04/17/23 05/03/23 50 mg-325 mg-40 mg tablet Allergies Allergy/AdvReac Type Severity Reaction Status Date / Time nitrofurantoin Allergy Severe Lung Verified 09/24/24 19:31 [From Macrobid] injury sulfamethoxazole Allergy Mild Swelling Verified 09/24/24 19:31 of Lip/Tongue/Throat Sulfa (Sulfonamide Allergy Unknown Swelling Verified 09/24/24 19:31 Antibiotics) sulfamethizole Allergy Unknown Swelling Verified 09/24/24 19:31 of Lip/Tongue/Throat trimethoprim Allergy Unknown Swelling Verified 09/24/24 19:31 of Lip/Tongue/Throat ciprofloxacin [From Cipro] AdvReac Anxiety Verified 09/24/24 19:31 prochlorperazine AdvReac Anxiety Verified 09/24/24 19:31 [From Compazine] Review of Systems Review of Systems: Last menstrual for 3 days ago All systems reviewed & are unremarkable except as noted in HPI and below PMFSH Past Medical History Medical History Anemia Chronic migraine without aura without status migrainosus, not intractable Crohn disease Surgical History Surgical History History of colonoscopy Oct 2022 Hx of tonsillectomy Family History Family History Father Hypertension Grandparent Family history of lung cancer Mother Family history of malignant neoplasm of kidney Social History Social History Smoking status: Never smoker Second hand tobacco smoke exposure: No Alcohol intake: never Substance use: never Living arrangements: with family Additional living arrangements comments: and 3 children Exam Narrative: GENERAL: Well-developed, well-nourished, and in no acute distress. HEAD: Normocephalic, atraumatic. EYES: PERRLA and EOMI. CHEST: Clear to auscultation. No respiratory distress. No wheezes rales or rhonchi HEART: Regular rate and rhythm. No murmur heard. Normal peripheral pulses. ABDOMEN: Soft, tender palpation in the suprapubic and right lower quadrant, without rebound or guarding, nondistended, normal active bowel sounds. no CVA tenderness EXTREMITIES: Normal range of motion. No edema. SKIN: Warm, dry, no rash. NEURO: Alert and oriented x3. No focal deficit. Moving all 4 limbs spontaneously PSYCH: Normal mood and affect. Course Course Emergency Course: 22:39 - CBC demonstrates elevated white blood cell count of 13.2 with neutrophil shift of 90%. Chemistries within normal limits. test negative. My review of the patient's CT abdomen pelvis is not immediately concerning for bowel obstruction or perforation radiology interpretation delayed due to technical issues. The patient states she wishes to leave. Her pain is improved with Tylenol. Will discharge against medical advice. I discussed the findings and limitations with the patient. She voiced understanding. She states she understands the risk of , permanent disability and missed diagnosis. Discussed return and emergency precautions including signs/symptoms of Acute abdomen, GI bleed, and intractable vomiting. The patient voiced understanding and agreement with the plan. All questions answered to her satisfaction. Vital Signs Vital signs: Vital Signs Temperature 97.6 F 09/24/24 16:46 Pulse Rate 97 09/24/24 16:46 Respiratory Rate 16 09/24/24 16:46 Blood Pressure 163/87 H 09/24/24 16:46 Pulse Oximetry 100 09/24/24 16:46 Temperature 97.6 F 09/24/24 16:46 Pulse Rate 85 09/24/24 19:43 Respiratory Rate 17 09/24/24 19:43 Blood Pressure 122/76 09/24/24 19:43 Pulse Oximetry 100 09/24/24 19:43 MDM - Abdominal Pain MDM Narrative Medical decision making narrative: plan: Labs, imaging, pain control, antiemetics, reassess Differential Diagnosis Differential diagnosis: Likely acute appendicitis, calculus of kidney, diverticulitis, endometriosis, gastroenteritis, pancreatitis, small bowel obstruction and other ( ectopic , , metabolic abnormality, UTI, other) Lab Data 09/24/24 19:39 09/24/24 19:39 Labs: Lab Results 09/24/24 09/24/24 Range/Units 19:39 19:57 WBC 13.2 H (4.5-10.0) K/mm3 RBC 3.77 L (4.2-5.4) M/mm3 Hgb 12.1 (12.0-15.0) g/dL Hct 35.0 L (37.0-47.0) % MCV 92.8 (80-100) fl MCH 32.1 (26-34) pg MCHC 34.6 (32-36) g/dl RDW 12.2 (11.5-14.5) % Plt Count 300 (150-375) k/mm3 MPV 9.9 (7.4-10.4) fl Immature Gran % (Auto) 0.4 (0-0.5) % Neut % (Auto) 90.3 H (45.5-73.1) % Lymph % (Auto) 6.4 L (18.3-44.2) % [place] % (Auto) 2.5 L (2.6-8.5) % Eos % (Auto) 0.1 (0-4.4) % Baso % (Auto) 0.3 (0.2-1.2) % Lymph # (Auto) 0.84 L (0.9-3.2) K/mm3 [place] # (Auto) 0.3 (0.1-0.6) K/mm3 Eos # (Auto) 0.0 (0-0.3) K/mm3 Baso # (Auto) 0.0 (0.0-0.1) K/mm3 Abs Immat Gran (auto) 0.05 H (0.00-0.031) K/mm3 Absolute Neuts (auto) 12.0 H (1.3-6.7) K/mm3 Absolute Nucleated RBC 0.000 (0.0-0.012) K/mm3 Nucleated RBC % 0.0 (0.0-0.2) % Sodium 138 (137-145) mmol/L Potassium 4.0 (3.4-5.0) mmol/L Chloride 102 (98-107) mmol/L Carbon Dioxide 26 (22-30) mmol/L Anion Gap 10 (4-12) mmol/L BUN 25 H D (7-17) mg/dL Creatinine 0.70 (0.7-1.0) mg/dL Estim Creat Clear Calc 86 ml/min Estimated GFR > 60 (59 - ) Glucose 106 (65-110) mg/dL Calcium 9.7 (8.4-10.2) mg/dL Total Bilirubin 1.2 (0.2-1.3) mg/dL AST 27 (14-36) U/L ALT 15 (6-35) U/L Alkaline Phosphatase 75 (38-126) U/L Total Protein 8.0 (6.3-8.2) g/dL Albumin 4.7 (3.5-5.1) g/dL Lipase 109 (23-300) U/L POC Urine HCG, Qual Negative (Negative) Discharge Plan Discharge Clinical Impression: Abdominal pain, right lower quadrant Patient Disposition: Left Against Medical Advice Condition: Stable Instructions: Antibiotic Form, Abdominal Pain (ED) Additional Instructions: You were seen in the emergency department. a white blood cell count is elevated at 13.2 but your liver and kidney function tests are all reassuring. A test was negative. Your CT abdomen pelvis is pending. I recommend following up with your primary care doctor. If you develop severe abdominal pain, abdominal pain with fevers, persistent vomiting, bleeding, or if you have other emergent concerns for life, limb, or eyesight, return to the emergency department. Patient Language: Macedonian Prescriptions: No Action Entyvio 300 mg Recon Soln 300 mg IV DIRECTED amoxicillin-pot clavulanate 875-125 mg tablet 1 tablet PO Q12H Qty: 20 0RF mupirocin 2 % ointment 1 applic topical BID Qty: 22 0RF uqeotugtxy-yhfmzjoospxqk-cjvg 50-325-40 mg tablet 1 tablet PO Q4H PRN (Reason: Headache) nortriptyline 10 mg capsule 10 mg PO BID Follow-up/Referrals: Gay,MD Ray [Primary Care Provider] - 3 Days Time of Disposition: 22:40
[2024-09-24] MEDS: ONDANSETRON INJ 4 MG/2 ML VIAL IV PUSH (19:36)
[2024-09-24 19:43] VITALS: BP 122/76; PULSE 85; RESP 17; O2SAT 100
[2024-09-24 19:44] LABS: Basophils Percent Auto 0.3 % (0.2-1.2); Eosinophils Percent Auto 0.1 % (0-4.4); Hemoglobin 12.1 g/dL (12.0-15.0); Immature Granulocyte Absolute 0.05 K/mm3 (0.00-0.031); Immature Granulocyte Percent A 0.4 % (0-0.5); Lymphocytes Absolute Auto 0.84 K/mm3 (0.9-3.2); Lymphocytes Percent Auto 6.4 % (18.3-44.2); Mean Corpuscular HGB Conc 34.6 g/dl (32-36); Mean Corpuscular Hemoglobin 32.1 pg (26-34); Mean Corpuscular Volume 92.8 fl (80-100); Mean Platelet Volume 9.9 fl (7.4-10.4); Monocytes Absolute Auto 0.3 K/mm3 (0.1-0.6); Monocytes Percent Auto 2.5 % (2.6-8.5); Neutrophils Percent Auto 90.3 % (45.5-73.1); Platelet Count Result 300 k/mm3 (150-375); Red Blood Count 3.77 M/mm3 (4.2-5.4); Red Cell Distribution Width 12.2 % (11.5-14.5); White Blood Count 13.2 K/mm3 (4.5-10.0)
[2024-09-24] MEDS: ACETAMINOPHEN 500 MG TABLET 1000 MG PO (19:50)
[2024-09-24 19:54] LABS: Alanine Aminotransferase 15 U/L (6-35); Albumin Level 4.7 g/dL (3.5-5.1); Alkaline Phosphatase 75 U/L (38-126); Anion Gap 10 mmol/L (4-12); Aspartate Amino Transferase 27 U/L (14-36); Bilirubin,Total 1.2 mg/dL (0.2-1.3); Blood Urea Nitrogen 25 mg/dL (7-17); Calcium 9.7 mg/dL (8.4-10.2); Carbon Dioxide 26 mmol/L (22-30); Chloride 102 mmol/L (98-107); Estimated CRCL calculation 86 ml/min; Estimated Glomerular Filt Rate > 60; Glucose 106 mg/dL (65-110); Lipase 109 U/L (23-300); Sodium 138 mmol/L (137-145)
[2024-09-24 19:59] LABS: BEDSIDEPREGUCG Negative (Negative)
== END 2024-09-24 22:55 | disposition left against medical advice (07) ==
PROVIDERS: Emergency Provider Preventive Medicine Aerospace Medicine; PCP Family Medicine
DX: R10.31 Right lower quadrant pain (principal); K50.90 Crohn's disease, unspecified, without complications
CPT/HCPCS: 36415; 74177; 80053; 81025; 83690; 85025; 96374; 99284; A9270; J2405; Q9967